=== PATIENT | male | born 1955 | race Caucasian/White ===

== ENCOUNTER 2016-04-17 10:24 | Observation (INO) | payer BC ==
[~2016-04-17] VITALS: Ht 172.7 cm; Wt 82.5 kg
--- NOTE | ~2016-04-17 | HEMODYNAMI ---
PATIENT:KELLY JUAREZ MEDICAL RECORD: [id number] : 57 [facility]# [id number] ADMISSION DATE: 04/17/16 Generatedon:04/18/201610:09 Patient name: KELLY JUAREZ Patient #: [id number] SSN: [id number] : 1955 Date of study: 04/18/2016 Page: Of Hemodynamic Procedure Report Patient Data Patient Demographics Procedure consent was obtained First Name: KELLY Gender: Male Last Name: ANN : 1955 Middle Initial: E Age: 60 year(s) Patient #: [id number] Race: SSN: [id number] Additional ID: [id number] Contact details Address: [address] [place] [address] lane State: [place] City: [place] Zip code: [address] Past Medical History History of disease Date Diagnosis Comments CAD Admission Admission Data Admission Date: 04/17/2016 Admission Time: 13:08 Arrival Date: 04/17/2016 Arrival Time: 13:08 Admit Source: Other Insurance Payor: Private Room #: [id number] health insurance Height (in.): 68.11 BSA: 1.97 (m2) Height (cm.): 173 BMI: 27.73 (kg/m2) Weight (lbs.): 182.98 Weight (kg.): 83 Lab Results Lab Result Date: 04/18/2016 Lab Result Time: 0:00 Biochemistry Name Units Result Min Max BUN mg/dl 12 --(-*--)-- 7 18 Creatinine mg/dl 0.9 --(-*--)-- 0.6 1.3 CBC Name Units Result Min Max Hemoglobin g/dl 14.5 --(*---)-- 13.5 17.5 Procedure Procedure Types Cath Procedure Diagnostic Procedure LHC LHC w/Coronaries Miscellaneous Procedures Moderate Sedation up to 15 minutes Peripheral Cath Diagnostic Procedure Cath Peripheral Four Vessel Arteriogram Procedure Description Procedure Date Procedure Date: 04/18/2016 Procedure Start Time: 9:57 Procedure End Time: 10:09 Procedure Staff Name Function Dov Ribera MD Performing Physician Miguel Faye RT Scrub Skylar Armijo RN Nurse Marciano Blackburn RT Monitor Procedure Data Cath Procedure Fluoroscopy Diagnostic fluoroscopy Total fluoroscopy Time: 1.9 time: 1.9 min min Diagnostic fluoroscopy Total fluoroscopy dose: dose: 246.91 mGy 246.91 mGy Contrast Material Contrast Material Type Amount (ml) Isovue 300 95 Entry Location Entry Primary Successful Side Size Upsize Upsize Entry Closure Succes sful Closure Location (Fr) 1 (Fr) 2 (Fr) Remarks Device Remarks Femoral Right 5 Fr Vascade artery Closure System Estimated blood loss: 10 ml Diagnostic catheters Device Type Used For End Catheter Placement Cordis 5Fr Pigtail LV Angiography Catheter (MP) Cordis 5Fr JL 4.0 Coronary Catheter (MP) Angiography Cordis 5Fr 3DRC Catheter Coronary (MP) Angiography Procedure Complications No complications Procedure Medications Medication Administration Route Dosage Oxygen NC 2 l/min Heparin Flush Bag added to field 2 bags (1000units/500ml NS) Lidocaine 2% added to field 20 Versed I.V. 1 mg Fentanyl I.V. 50 mcg Versed I.V. 1 mg Fentanyl I.V. 50 mcg Fentanyl I.V. 50 mcg Versed I.V. 1 mg Fentanyl I.V. 50 mcg Versed I.V. 1 mg Versed I.V. 1 mg Hemodynamics Rest BSA: 1.97 (m2) HGB: 14.5 (g/dl) O2 Consumption: Estimated: 220.06 (ml/min) O2 Co nsumption indexed: Estimated:111.71 (ml/min/m) Heart Rate: 54 (bpm) Pressure Samples Time Site Value (mmHg) Purpose Heart Use Rate(bpm) 10:00 AO 120/80(98) Snapshot 46 Snapshots Pre Cath Intra NCS Post Cath Vital Signs Time Heart Resp SPO2 NIBP (mmHg) Rhythm Pain Sedation Rate (ipm) (%) Status Level (bpm) 8:57:54 54 16 100 149/86(117) NSR 0 (11) 10(A) , No pain 9:02:16 49 15 100 147/79(106) NSR 0 (11) 10(A) , No pain 9:06:36 53 16 99 130/81(110) NSR 0 (11) 10(A) , No pain 9:11:35 54 16 98 Measuring NSR 0 (11) 10(A) , No pain 9:11:39 55 16 98 125/76(100) NSR 0 (11) 10(A) , No pain 9:15:57 57 16 97 134/78(108) NSR 0 (11) 10(A) , No pain 9:20:09 60 17 96 121/70(88) NSR 0 (11) 10(A) , No pain 9:24:25 52 18 95 134/75(99) NSR 0 (11) 10(A) , No pain 9:28:41 61 16 95 118/79(94) NSR 0 (11) 10(A) , No pain 9:32:53 51 18 96 122/75(97) NSR 0 (11) 10(A) , No pain 9:37:11 55 16 96 136/71(88) NSR 0 (11) 10(A) , No pain 9:41:29 57 16 95 121/74(90) NSR 0 (11) 10(A) , No pain 9:45:46 60 16 96 116/79(93) NSR 0 (11) 10(A) , No pain 9:49:58 57 16 97 121/78(95) NSR 0 (11) 10(A) , No pain 9:54:18 51 17 96 122/63(107) NSR 0 (11) 10(A) , No pain 9:58:30 53 16 96 117/67(89) NSR 0 (11) 10(A) , No pain 10:02:44 67 16 96 124/75(95) NSR 0 (11) 10(A) , No pain 10:07:04 71 16 97 120/75(97) NSR 0 (11) 10(A) , No pain Medications Time Medication Route Dose Verified Delivered Reason Notes Effect iveness by by 8:59:55 Oxygen NC 2 Dov Skylar Per l/min Mounika Armijo RN physician 9:00:04 Heparin Flush added 2 Dov Monae used for Bag to bags Mounika Ribera MD procedure (1000units/500ml field NS) 9:00:12 Lidocaine 2% added 20ml Dov Dov used for to vial Mounika Ribera MD procedure field 9:50:12 Versed I.V. 1 mg Dov Skylar for Mounika Armijo RN sedation 9:50:18 Fentanyl I.V. 50 Dov Skylar for mcg Mounika Armijo RN sedation 9:52:03 Fentanyl I.V. 50 Dov Skylar for mcg Mounika Armijo RN sedation 9:52:14 Versed I.V. 1 mg Dov Skylar for Mounika Armijo RN sedation 9:54:13 Fentanyl I.V. 50 Dov Skylar for mcg Mounika Armijo RN sedation 9:54:16 Versed I.V. 1 mg Dov Skylar for Mounika Armijo RN sedation 9:56:07 Fentanyl I.V. 50 Dov Skylar for mcg Mounika Armijo RN sedation 9:56:09 Versed I.V. 1 mg Dov Skylar for Mounika Armijo RN sedation 9:58:06 Versed I.V. 1 mg Dov Skylar for Mounika Armijo RN sedation Procedure Log Time Note 8:24:08 ACC Patient presents with Unstable Angina CCS Anginal Class 3--Marked limitation of physical activity, angina occurs with ordinary activity.. 8:25:20 Diagnostic Cath status Elective 8:26:05 Time tracking: Regular hours 8:26:10 Plan of Care:Hemodynamics will remain stable., Cardiac rhythm will remain stable., Comfort level will be maintained., Respiratory function will remain adequate., Patient/ family verbilizes understanding of procedure., Procedure tolerated without complication., Recovers from procedure without complications.. 8:27:16 Lab Result : Hemoglobin 14.5 g/dl 8:27:16 Lab Result : Creatinine 0.9 mg/dl 8:27:16 Lab Result : BUN 12 mg/dl 8:35:25 Miguel Faye RT(R) sent for patient. Start room use. 8:44:46 Informed consent obtained and on chart 8:44:54 Admit Source: Other 8:44:58 Arrival Date: 04/17/2016 1:08:00 PM 8:45:11 Insurance Payor : Private health insurance 8:56:38 Patient received from Med II to [facility] 3 Alert and oriented. Tansferred to table in Supine position. 8:56:39 Warm blankets applied, and fauzia hugger turned on for patient comfort. 8:56:40 Correct patient and procedure confirmed by team. 8:56:40 ECG and BP/O2 sat monitors applied to patient. 8:56:41 Vital chart was started 8:56:42 Baseline sample Acquired. 8:56:46 Rhythm: sinus rhythm 8:56:48 Full Disclosure recording started 8:59:55 Oxygen 2 l/min NC was given by Skylar Armijo RN; Per physician; 9:00:04 Heparin Flush Bag (1000units/500ml NS) 2 bags added to field was given by Dov Ribera MD; used for procedure; 9:00:12 Lidocaine 2% 20ml vial added to field was given by Dov Ribera MD; used for procedure; 9:03:15 H&P Date Dictated: 04/17/2016 Within 30 days and on chart., H&P Addendum completed by physician on day of procedure. (MUST COMPLETE FOR ALL OUTPATIENTS). 9:03:21 Pre-procedure instructions explained to patient. 9:03:21 Pre-op teaching completed and patient verbalized understanding. 9:03:23 Family in waiting room. 9:03:24 Patient NPO since Midnight. 9:03:28 Is the patient allergic to Iodine/contrast media? No. 9:03:29 Is patient on blood thinner?Yes 9:03:31 ACC The patient was administered the following blood thiners within the last 24 hours: ACCPlavix 9:03:33 Patient diabetic? No. 9:03:36 Previous problem with sedation/anesthesia? No ? 9:03:36 Snore? Yes 9:03:38 Sleep apnea? No 9:03:39 Deviated septum? No 9:03:40 Opens mouth fully? Yes 9:03:41 Sticks out tongue? Yes 9:03:42 Airway obstruction? No ? 9:03:46 Dentures? No ? 9:03:49 Pre procedure: right dorsailis pedis pulse 1+ Palpable, but thready & weak; easily obliterated 9:03:53 Patient pain scale 0/10 ?. 9:03:58 IV patent on arrival in left forearm with 0.9% NaCl at KVO. 9:04:30 Lab results completed and on chart. 9:04:34 Right groin area was prepped with chlora-prep and draped in sterile fashion 9:04:35 Alarms reviewed by R. N. 9:04:35 Sharps counted by scrub and verified by R.N. 9:04:46 Use device set Femoral Dx 9:04:48 Tegaderm 4 x 4 opened to sterile field. 9:04:50 Acist Hand Control opened to sterile field. 9:04:50 Acist Manifold opened to sterile field. 9:04:52 Acist Syringe opened to sterile field. 9:04:52 Bag Decanter opened to sterile field. 9:04:53 Medline Cath Pack opened to sterile field. 9:04:53 Terumo 5Fr Bittinger Sheath opened to sterile field. 9:04:54 St Dion 260cm J .035 wire opened to sterile field. 9:04:56 Diagnostic Infinity 5Fr Multipack catheter opened to sterile field. 9:06:53 Patient Weight : 83 lbs 9:07:07 Patient Height : 173 inches 9:08:35 ACCPatient has been prescribed/administered the following anti-anginal medication within the last 2 weeks: None 9:17:06 Zero performed for pressure channel P1 9:21:57 Zero performed for pressure channel P1 9:21:59 Zero performed for pressure channel P1 9:30:10 Case delayed due to physician working in [facility]. 9:31:44 Procedure type changed to Cath procedure, Diagnostic procedure, LHC, LHC w/Coronaries, Miscellaneous Procedures, Moderate Sedation up to 15 minutes, Peripheral Cath Diagnostic Procedure, Cath Peripheral, Four Vessel Arteriogram 9:49:51 --------ALL STOP TIME OUT------ 9:49:52 Final Timeout: patient, procedure, and site verified with staff and physician. All members of the team are in agreement. 9:49:54 Right groin site verified by team. 9:49:56 Physical assessment completed. ASA score P 2 - A patient with mild systemic disease as per Dov Ribera MD. 9:50:00 Sedation plan: IV Moderate Sedation Versed, Fentanyl 9:50:12 Versed 1 mg I.V. was given by Skylar Armijo RN; for sedation; 9:50:18 Fentanyl 50 mcg I.V. was given by Skylar Armijo RN; for sedation; 9:52:03 Fentanyl 50 mcg I.V. was given by Skylar Armijo RN; for sedation; 9:52:14 Versed 1 mg I.V. was given by Skylar Armijo RN; for sedation; 9:54:13 Fentanyl 50 mcg I.V. was given by Skylar Armijo RN; for sedation; 9:54:16 Versed 1 mg I.V. was given by Skylar Armijo RN; for sedation; 9:56:07 Fentanyl 50 mcg I.V. was given by Skylar Armijo RN; for sedation; 9:56:09 Versed 1 mg I.V. was given by Skylar Armijo RN; for sedation; 9:57:25 Procedure started. 9:57:29 Local anesthetic to right femoral artery with Lidocaine 2% by Dov Ribera MD.INITIAL ACCESS ONLY 9:57:58 A 5 Fr sheath was inserted into the Right Femoral artery 9:58:06 Versed 1 mg I.V. was given by Skylar Armijo RN; for sedation; 9:58:32 A Cordis 5Fr Pigtail Catheter (MP) was advanced over the wire and used for LV Angiography. 9:59:26 LV angiography performed. 9:59:27 LV gram done using LUEVANO 9:59:35 EF : 50 % 9:59:40 Injector settings: Ml/sec: 10, Volume: 20, 10:00:05 Catheter removed. 10:00:15 A Cordis 5Fr JL 4.0 Catheter (MP) was advanced over the wire and used for Coronary Angiography. 10:01:20 LCA angiography performed. 10:01:21 Catheter removed. 10:01:26 A Cordis 5Fr 3DRC Catheter (MP) was advanced over the wire and used for Coronary Angiography. 10:02:30 RCA angiography performed. 10:03:19 Left carotid angiography performed. 10:03:24 Left subclavian angiography performed 10:03:25 Right subclavian angiography performed 10:04:14 Catheter removed. 10:04:37 Vascade 5Fr Closure Device opened to sterile field. 10:05:12 Sheath removed intact; hemostasis achieved with Vascade Closure System to the Right Femoral artery. 10:05:19 Procedure ended.(Physican Out) 10:06:22 Fluoroscopy time 01.90 minutes. 10:06:41 Fluoroscopy dose: 246.91 mGy 10:06:41 Flurop Dose total: 246.91 10:06:45 Contrast amount:Isovue 300 95ml. 10:06:47 Sharps counted by scrub and verified by R.N. 10:06:49 Insertion/operative site no bleeding no hematoma. 10:06:52 Post-op/insertion site Right Femoral artery dressed using a 4 x 4 and Tegaderm. 10:06:53 Post Procedure Pulses reassessed and unchanged 10:06:56 Post-procedure physical assessment completed. ASA score P 2 - A patient with mild systemic disease as per Dov Ribera MD. 10:06:58 Post procedure rhythm: unchanged. 10:07:01 Estimated blood loss: 10 ml 10:07:03 Post procedure instruction explained to patient.Patient verbalizes understanding. 10:07:03 Patient needs reinforcement of post procedure teaching. 10:07:19 Procedure Complication : No complications 10:07:41 Procedure and supply charges have been captured, reviewed, submitted and are correct. 10:09:01 Vital chart was stopped 10:09:02 See physician's report for complete and final results. 10:09:04 Report given to PCU. 10:09:07 Patient transfered to PCU with Bed. 10:09:09 Procedure ended. 10:09:09 Full Disclosure recording stopped 10:09:15 End room use (Document Last) Device Usage Item Name Manufacture Quantity Catalog Number Hospital Part Current Minima l Lot# / Charge Number Stock Stock Serial# Code Tegaderm 4 1 [id number] 5 x 4 Acist Hand Acist 1 67627 [id number] 189121 [id number] 5 Control [employer] Inc Acist Acist 1 96240 419127 773256 684254 5 Manifold Medical Systems Inc Acist Acist 1 36523 933213 148328 754473 20 Syringe Medical Systems Inc Bag Microtek 1 2002S 191138 65881 835763 5 Decanter Medical Inc. Medline Cardinal 1 [id number] 629375 45520 474373 5 Cath Pack Health Terumo 5Fr Terumo 1 [id number] [id number] 386082 976637 [address] Dion St Dion 1 [id number] 016542 849130 296563 30 260cm J .035 wire Diagnostic Cardinal 1 [id number] 830744 45255 909123 30 Infinity Health 5Fr Multipack catheter Cordis 5Fr Cardinal 1 [id number] 5 Pigtail Health Catheter (MP) Cordis 5Fr Cardinal 1 150896 5 JL 4.0 Health Catheter (MP) Cordis 5Fr Cardinal 1 198582 5 3DRC Health Catheter (MP) Vascade Cardiva 1 [id number] 908904 90585 [id number] 10 5Fr Medical, Closure Inc. Device Signature Audit [place] Stage Time Signature Unsigned Intra-Procedure 04/18/2016 Marciano Blackburn 10:09:42 AM RT(R) Signatures Monitor : Marciano Blackburn RT Signature : Date : Time : [address] [address]
[~2016-04-17 10:24] MED LIST: BAYER CHEWABLE81 MG PO; FLOMAX0.4 MG PO; IMDUR30 MG PO; LOPRESSOR25 MG PO; PLAVIX75 MG PO; PRAVACHOL20 MG PO; ZOCOR40 MG PO
[2016-04-17 11:25] LABS: BASOPHILS 0.3 % (0.0-2.0); EOSINOPHILS 1.9 % (0-7); HEMATOCRIT 43.9 % (42.0-54.0); HEMOGLOBIN 14.5 g/dL (13.5-17.5); IMMATURE GRANULOCYTES 0.1 % (0-5); LYMPHOCYTES 26.5 % (15-50); MCV 96.9 fL (80.0-100.0); MEAN PLATELET VOLUME 9.6 fL (7.4-10.4); MONOCYTES 9.4 % (2-11); NEUTROPHILS 61.8 % (40-80); PLATELET COUNT 200 10x3/uL (130-400); RBC 4.53 10x6/uL (4.20-6.10); RDW 13.5 % (11.5-14.5); WBC 7.3 10x3/uL (4.8-10.8)
[2016-04-17 11:41] LABS: ALBUMIN 3.9 g/dL (3.4-5.0); ALKALINE PHOSPHATASE 66 U/L (46-116); ALT (SGPT) 22 U/L (10-68); BILIRUBIN - TOTAL 0.38 mg/dL (0.2-1.3); CALC OSMOLALITY 283 mosm/kg (275-300); CALCIUM 9.2 mg/dL (8.5-10.1); CARBON DIOXIDE 27.8 mmol/L (21.0-32.0); CHLORIDE - SERUM 107 mmol/L (98-107); CREATININE - SERUM 0.9 mg/dL (0.6-1.3); GLUCOSE 108 mg/dL (74-106); POTASSIUM - SERUM 4.7 mmol/L (3.5-5.1); PROTEIN - SERUM 7.2 g/dL (6.4-8.2); SODIUM 142 mmol/L (136-145); UREA NITROGEN 12 mg/dL (7-18); eGFR NON AFRICAN AMERICAN > 90 mL/min (90-120)
[2016-04-17 12:09] LABS: TROPONIN-I 0.071 ng/mL (0.000-0.060)
--- NOTE | 2016-04-17 14:06 | NUR ---
RECEIVED PT TO ROOM 2115 FROM ER VIA W/C IN STABLE CONDITION AAOX4 DENIES ANY CHEST PAIN OR PRESSURE AT THIS TIME TELEMETRY APPLIED SR RATE 63 SALINE LOCK TO LFA WITH 20 GA IV CATH WITH OCCLUSIVE DRSG INTACT NO REDNESS OR EDEMA NOTED
[2016-04-17] MEDS ORDERED: ZYLOPRIM300 MG PO (14:26)
[2016-04-17 15:29] VITALS: BP 130/78; Ht 172.7 cm; Wt 82.5 kg
--- NOTE | 2016-04-17 19:15 | NUR ---
INITIAL ROUNDS MADE. PT SITTING UP IN BED WATCHING TV. CALL LIGHT IN REACH. PT DENIES NEEDS OR C/O AT THIS TIME. DISCUSSED PLAN OF CARE AND NPO AFTER MN FOR C IN AM.
[2016-04-17 20:00] VITALS: BP 98/62
--- NOTE | 2016-04-17 22:35 | NUR ---
WATCHING TV. NO NEEDS AT THIS TIME. CONT TO MONITOR.
--- NOTE | 2016-04-18 03:25 | NUR ---
CHIEF OF PLANNING AT BEDSIDE FOR VS. NEEDS ADDRESSED, CALL LIGHT IN REACH. WILL CONT TO MONITOR.
[2016-04-18 03:49] VITALS: BP 96/59
--- NOTE | 2016-04-18 06:09 | NUR ---
RESTING WELL WITH EYES CLOSED, CONT TO MONITOR.
[2016-04-18 08:17] VITALS: BP 95/69
--- NOTE | 2016-04-18 08:50 | NUR ---
PRE-OPS GIVEN BY NS. TO EDGE GRINDER MACHINE BY BED.
--- NOTE | 2016-04-18 10:09 | HP ---
PATIENT: KELLY JUAREZ MEDICAL RECORD: [id number] ACCOUNT: [id number] LOCATION:[address] : 57 ADMISSION DATE: 04/17/16 HISTORY AND PHYSICAL EXAMINATION DIAGNOSES: 1. Unstable angina. 2. Coronary artery disease. 3. Previous percutaneous transluminal coronary angioplasty stent. 4. Dizziness. 5. Carotid vascular disease. 6. Hypertension. 7. Hyperlipidemia. HISTORY OF PRESENT ILLNESS: Mr. Juarez has past history of coronary artery disease, PTCA stent in 2013. He now presents with unstable angina, symptomatology as well as dizziness, and unsteady gait. He as well has a history of carotid vascular disease. CURRENT MEDICATIONS: Metoprolol, Zocor, aspirin, Imdur. PHYSICAL EXAMINATION: GENERAL APPEARANCE: Well-nourished, well-developed, appears stated age. Level of distress, comfortable. PSYCHIATRIC: Mental status, alert, normal affect. Orientation, oriented to time, place and person. EYES: Lids and conjunctiva, noninjected. No discharge, no pallor. ENT: Lips, teeth, gums, normal dentition. Oropharynx, no cyanosis, no pallor. NECK: Carotid arteries, bilateral normal upstroke, no bruits, no thrills. JUGULAR VEINS: No jugular venous pressure or distention. CERVICAL LYMPH NODES: Nontender, nonenlarged. THYROID: Not enlarged. Nontender. No nodules. LUNGS: Respiratory effort, unlabored. CHEST: Normal curvature. No thoracic deformity. No chest wall tenderness. Percussion, resonant. Auscultation, clear. No wheezes, no rales, no rhonchi. CARDIOVASCULAR: Precordial exam, nondisplaced. No heaves or pericardial thrills. Rate and rhythm, regular. Heart sounds, normal S1, normal S2. No S3, no gallop, no rub. Systolic murmur, not heard. Diastolic murmur, not heard. EXTREMITIES: No cyanosis, no edema. Peripheral pulses, full and equal in all extremities, except as noted. No bruits appreciated. ABDOMEN: Soft, nondistended. Normal aorta. No bruit. Nontender. No masses. Liver, nontender, no hepatomegaly. Spleen, nontender, no splenomegaly. MUSCULOSKELETAL: No joint tenderness. No joint swelling. No erythema. NEUROLOGICAL: Normal gait, normal strength, normal tone. SKIN: Warm and dry. REVIEW OF SYSTEMS: The patient reports easy bruising but reports no swollen glands. The patient reports no fever, no night sweats, no significant weight gain, no significant weight loss. No significant exercise tolerance. The patient reports no dry eyes, no irritation, no vision change. Patient reports no difficulty hearing and no ear pain. Patient reports no frequent nose bleeds or nose and sinus problems. Patient reports on arm pain on exertion. No shortness of breath while lying down. No history of heart murmur. Patient reports no cough, no wheezing or coughing up blood. Patient reports no abdominal pain, no vomiting. Normal appetite. No diarrhea and not vomiting HISTORY AND PHYSICAL [id number] KINCANNON,KELLY E blood. No nausea and no constipation. Patient reports no incontinence. No difficulty urinating. No hematuria. No increased frequency. Patient reports no muscle aches. No weakness, no arthralgias, no back pain. No swelling of the extremities. Patient reports no abnormal mole, no jaundice, no rashes. Reports no loss of consciousness. No weakness and no numbness. No seizures, dizziness, or headaches. The patient reports no depression, no sleep disturbance, feeling safe in a relationship and no alcohol abuse. Patient reports on fatigue. Reports no runny nose or sinus pressure. No itching, no hives, and no frequent sneezing. OVERALL IMPRESSION: Unstable anginal symptomatology, most likely he has recurrent hemodynamically significant coronary artery disease. We will proceed with coronary angiography. Further care depends upon findings of the angiography. TRANSINT:[id number] Voice Confirmation ID: [id number] DOCUMENT ID: [id number] JER BELL MD at 1009 CC: [id number] DICTATION DATE: 04/17/16 1258 SEPTIC TANK SETTER: 04/17/16 1457 ADM IN [place] [place] [address]
--- NOTE | 2016-04-18 10:32 | NUR ---
BACK FROM TWIST MAKER. VS WNL. RIGHT GROIN STABLE WITHOUT BLEEDING OR HEMATOMA NOTED. WILL MONITOR.
[2016-04-18 12:31] VITALS: BP 123/76
--- NOTE | 2016-04-18 12:38 | NUR ---
BED REST UP. GROIN STABLE.
--- NOTE | 2016-04-18 13:11 | NUR ---
IV AND TELEMETRY DCD. DC PLANS GIVEN. UNDERSTANDING VOICED. ESCORTED TO CAR BY W/C.
--- NOTE | 2016-05-03 14:37 | DS ---
PATIENT:KELLY JUAREZ :57 MEDICAL RECORD: [id number] DISCHARGE SUMMARY ADMISSION DATE: 04/17/16 DISCHARGE DATE: 04/18/16 DISCHARGE DIAGNOSES: 1. Chest pain. 2. Dizziness. 3. Coronary artery disease. 4. Carotid vascular disease. 5. Hyperlipidemia. HOSPITAL COURSE: Mr. Juarez presented with anginal symptomatology as well as dizziness. He has a history of carotid vascular disease as well as coronary artery disease. He underwent cardiac catheterization revealing no restenosis of the previously placed stents, no disease else zuniga, his 4-vessel revealed no significant carotid disease. He was discharged home with no change in his medications. He will follow up with [facility]4 months. TRANSINT:[id number] Voice Confirmation ID: [id number] DOCUMENT ID: [id number] JER BELL MD at 1437 CC: [id number] DICTATION DATE: 04/18/16 1009 WINE STEWARD/STEWARDESS: 04/19/16 0245 DIS IN 04/18/16 [address] [address] [place] [address]
--- NOTE | 2016-05-03 14:37 | OP ---
PATIENT NAME: KELLY JUAREZ MEDICAL RECORD: [id number] :57 LOCATION:D.M2 [address].2116 ADMISSION DATE:04/17/16 SURGEON: JER BELL MD DATE OF OPERATION: 04/18/2016 PROCEDURES: 1. Left heart catheterization. 2. Selective coronary angiography. 3. Left ventriculogram. 4. A four-vessel carotid and vertebral angiography. INDICATION: Angina and coronary artery disease, dizziness, carotid vascular disease. PROCEDURE: After informed consent was obtained and after detailed explanation of risks, benefits as well as alternative therapies, the patient elected to proceed with angiogram and heart catheterization. The right femoral area was prepped and draped in normal sterile fashion. Right femoral artery was cannulated via modified Seldinger technique with placement of 5-Wolof sheath. All catheters exchanged through this sheath. FINDINGS: There was a subselection of each subclavian as well as the left carotid. RIGHT SIDE: The common internal and external carotids have mild plaquing none greater than 20%, no flow-limiting stenosis. Vertebral artery has no significant disease. LEFT SYSTEM: The common internal and external carotids have mild plaquing none greater than 20%, no flow-limiting stenosis. Vertebral artery is devoid of disease. Left ventriculogram was performed in the standard 30-degree LEUVANO view, reveals good cardiac wall motion throughout all segments. Overall ejection fraction estimated as 55% to 60%. SELECTIVE CORONARY ANGIOGRAPHY: 1. Left main is with no significant angiographic disease. 2. Left anterior descending has moderate irregularities, but no flow-limiting stenosis. 3. The left circumflex has previously placed stents, these are widely patent with no significant restenosis. No disease elsewise throughout the left circumflex or its branches. 4. The right coronary has previously placed stents, these are widely patent with no significant restenosis. No disease elsewise throughout right coronary or its branches. OVERALL IMPRESSION: 1. No significant restenosis of the previously placed stents. No disease elsewise. 2. Normal left ventricular function. 3. No significant carotid vascular disease is present. TRANSINT:[id number] Voice Confirmation ID: [id number] DOCUMENT ID: [id number] OPERATIVE REPORT [id number] KELLY JUAREZ JER BELL MD at 1437 CC: [id number] DICTATION DATE: 04/18/16 1011 ELECTRONICS TECHNOLOGY DEPARTMENT CHAIR: 04/18/16 1409 DIS IN 04/18/16 [facility] [address] [facility] [place]
== END 2016-04-18 13:11 | disposition home or self-care (01) ==
LOC: D.ER 10:24 → D.M2 13:08 → OBSVTIME 13:08 → D.M2 13:08
PROVIDERS: Physician Assistant; ADMIT Internal Medicine Interventional Cardiology
DX: I25.110 Atherosclerotic heart disease of native coronary artery with unstable angina pectoris (principal); Z95.5 Presence of coronary angioplasty implant and graft; I10 Essential (primary) hypertension; E78.5 Hyperlipidemia, unspecified; I99.8 Other disorder of circulatory system; R42 Dizziness and giddiness; R26.81 Unsteadiness on feet

== ENCOUNTER → 2018-08-02 10:07 | Outpatient (CLI) | payer OTHER ==
[2016-04-17 15:29] VITALS: BMI 27.6
[~2018-08-02 10:07] MED LIST changes: +ZYLOPRIM300 MG PO
== END | disposition home or self-care (01) ==
LOC: D.HCCARDIO 10:07
PROVIDERS: ATTEND Internal Medicine Cardiovascular Disease
DX: I25.119 Atherosclerotic heart disease of native coronary artery with unspecified angina pectoris (principal)

== ENCOUNTER → 2019-04-11 12:42 | Outpatient (CLI) | payer OTHER ==
[2016-04-17 15:29] VITALS: BMI 27.6
== END | disposition home or self-care (01) ==
LOC: D.HCCECHO 12:42
PROVIDERS: ATTEND Internal Medicine Cardiovascular Disease
DX: I25.10 Atherosclerotic heart disease of native coronary artery without angina pectoris (principal)

== ENCOUNTER → 2020-06-12 08:38 | Outpatient (CLI) | payer OTHER ==
[2016-04-17 15:29] VITALS: BMI 27.6
== END | disposition home or self-care (01) ==
LOC: D.HCCECHO 08:38
PROVIDERS: ATTEND Internal Medicine Cardiovascular Disease
DX: I25.10 Atherosclerotic heart disease of native coronary artery without angina pectoris (principal)

== ENCOUNTER 2020-07-27 10:00 | Emergency (ER) | payer OTHER ==
[~2020-07-27] VITALS: Ht 172.7 cm; Wt 84.1 kg
[2020-07-27 10:05] VITALS: Ht 172.7 cm; Wt 84.1 kg
[2020-07-27 10:35] LABS: BASOPHILS 1.3 % (0-2); EOSINOPHILS 1.9 % (0-7); HEMATOCRIT 41.2 % (42.0-54.0); HEMOGLOBIN 14.2 g/dL (13.5-17.5); LYMPHOCYTES 25.2 % (15-50); MCH 31.7 pg (26.0-34.0); MCHC 34.4 g/dL (31.0-37.0); MCV 92.1 fL (80.0-100.0); MEAN PLATELET VOLUME 7.6 fL (7.4-10.4); MONOCYTES 8.7 % (2-11); NEUTROPHILS 62.9 % (40-80); PLATELET COUNT 217 10x3/uL (130-400); RBC 4.47 10x6/uL (4.20-6.10); RDW 13.5 % (11.5-14.5); WBC 7.8 10x3/uL (4.8-10.8)
[2020-07-27 10:49] LABS: CALC OSMOLALITY 275 mosm/kg (275-300); CALCIUM 8.6 mg/dL (8.5-10.1); CHLORIDE - SERUM 105 mmol/L (98-107); CREATININE - SERUM 0.9 mg/dL (0.6-1.3); GLUCOSE 94 mg/dL (74-106); POTASSIUM - SERUM 3.9 mmol/L (3.5-5.1); SODIUM 138 mmol/L (136-145); UREA NITROGEN 12 mg/dL (7-18); eGFR NON AFRICAN AMERICAN > 90 mL/min (90-120)
[2020-07-27 11:06] LABS: ALBUMIN 3.7 g/dL (3.4-5.0); ALKALINE PHOSPHATASE 82 U/L (30-120); ALT (SGPT) 21 U/L (10-68); BILIRUBIN - TOTAL 0.52 mg/dL (0.2-1.3); CKMB 0.2 U/L (0.0-3.6); CREATINE KINASE 49 UL (21-232); MAGNESIUM - SERUM 1.9 mg/dL (1.8-2.4); PROTEIN - SERUM 7.2 g/dL (6.4-8.2); TROPONIN-I 0.031 ng/mL (0.000-0.060)
== END 2020-07-27 14:26 | disposition home or self-care (01) ==
LOC: D.ER 10:00
PROVIDERS: Family Medicine
DX: R07.9 Chest pain, unspecified (principal); H54.62 Unqualified visual loss, left eye, normal vision right eye; I25.2 Old myocardial infarction; I20.9 Angina pectoris, unspecified; F17.210 Nicotine dependence, cigarettes, uncomplicated